=== PATIENT | female | born 1950 | race Caucasian/White ===

== ENCOUNTER 2021-09-10 06:04 | Inpatient (IN) ==
[2021-09-10] MEDS ORDERED: DOBUTamine 1,000 MG/250 ML BAG ONE (06:09)
[2021-09-10] MEDS ORDERED: NiCARdipine 2.5 MG/10 ML Syringe IVPB ONE (06:09)
[2021-09-10] MEDS ORDERED: Papaverine 60 MG/2 ML VIAL IVP ONE (06:11)
[2021-09-10] MEDS ORDERED: *HR* Heparin 5,000 UNIT/ML VIAL ONE (06:12)
[2021-09-10] MEDS ORDERED: *HR* Propofol 200 MG/20 ML VIAL IVP ONE (06:13)
[2021-09-10] MEDS ORDERED: *HR* Midazolam HCl 5 MG/5 ML VIAL IVP ONE (06:13)
[2021-09-10] MEDS ORDERED: *HR* FentaNYL (PF) 250 MCG/5 ML VIAL ONE (06:13)
[2021-09-10] MEDS ORDERED: *HR* Magnesium Sulfate 1 GM/2 ML VIAL ONE (06:14)
[2021-09-10] MEDS ORDERED: *HR* Rocuronium Bromide 50 MG/5 ML VIAL ONE (06:14)
[2021-09-10] MEDS ORDERED: Famotidine 20 MG/2 ML VIAL ONE (06:14)
[2021-09-10] MEDS ORDERED: Tranexamic Acid 1,000 MG/10 ML VIAL ONE (06:14)
[2021-09-10] MEDS ORDERED: Lidocaine 2% Syringe 100 MG/5 ML ONE (06:22)
[2021-09-10] MEDS ORDERED: ceFAZolin 1,000 MG in 0.9 % Sodium Chloride 100 ML IVPB ONE ×2 (06:28→07:30)
[2021-09-10] MEDS ORDERED: CeFAZolin Syr 2,000MG/20 ML 2,000 MG/20 ML SYRINGE IVPB ONE (06:45)
[2021-09-10] MEDS ORDERED: Chlorhexidine Rinse 15 ML MOUTHWASH MM ONE (06:59)
[2021-09-10] MEDS ORDERED: Norepinephrine 4 MG in 0.9 % Sodium Chloride 250 ML IVC PRN (07:00)
[2021-09-10] MEDS ORDERED: Buckersberg's Blood Cardioplegia PF ONE (07:00)
[2021-09-10] MEDS ORDERED: Heparin 15,000 UNIT in 0.9 % Sodium Chloride 500 ML IV ONE (07:00)
[2021-09-10] MEDS ORDERED: del Nido Cardioplegia Solution PF ONE ×2 (07:00)
[2021-09-10] MEDS ORDERED: Acetaminophen IV 1,000 MG/100 ML BAG IVPB ONE ×2 (09:40→10:19)
[2021-09-10] MEDS ORDERED: Naloxone 0.4 MG/ML INJ IVP PRN (10:09)
[2021-09-10] MEDS ORDERED: *HR* Dextrose 50 % in Water (Syg) 50 ML SYRINGE IVP PRN (10:09)
[2021-09-10] MEDS ORDERED: Ondansetron 4 MG/2 ML VIAL IVP PRN (10:09)
[2021-09-10] MEDS ORDERED: Potassium Chloride 40 MEQ/200 ML BAG IVPB PRN (10:09)
[2021-09-10] MEDS ORDERED: Insulin Regular, Human 100 UNIT/ML IV PRN (10:09)
[2021-09-10] MEDS ORDERED: Calcium Gluconate 1gm/50mL 1 GM/50 ML BAG IVPB PRN (10:09)
[2021-09-10 10:29] LABS: ABG Base Excess 0 mEq/L (-2 to 3); ABG Chloride 109 mEq/L (98-107); ABG Glucose 84 mg/dL (60-95); ABG HCO3 27 mEq/L (21-27); ABG Oxygen Saturation 100 % (95-98); ABG PCO2 53 mmHg (35-45); ABG PH 7.31 pH Units (7.32-7.45); ABG PO2 267 mmHg (85-104); ABG TCO2 28 mEq/L (20-26)
[2021-09-10] MEDS ORDERED: Pantoprazole 40 MG VIAL IVP SCH (10:30)
[2021-09-10] MEDS: Ringers Solution, Lactated 1,000 ML IVC SCH (10:45)
[2021-09-10] MEDS ORDERED: Protamine Sulfate 250 MG/25 ML VIAL IVP ONE (10:56)
[2021-09-10] MEDS ORDERED: Calcium Gluconate 1,000 MG/10 ML VIAL ONE (11:25)
[2021-09-10 11:50] LABS: ABG Base Excess -2 mEq/L (-2 to 3); ABG Chloride 108 mEq/L (98-107); ABG Glucose 117 mg/dL (60-95); ABG HCO3 25 mEq/L (21-27); ABG Ionized Calcium 1.17 mmol/L (1.15-1.35); ABG Oxygen Saturation 99 % (95-98); ABG PCO2 47 mmHg (35-45); ABG PH 7.33 pH Units (7.32-7.45); ABG PO2 138 mmHg (85-104); ABG TCO2 26 mEq/L (20-26)
[2021-09-10] MEDS ORDERED: niCARdipine 20 MG/200 ML MLS IVC ONE (12:16)
[2021-09-10 12:50] LABS: ABG Base Excess -2 mEq/L (-2 to 3); ABG HCO3 24 mEq/L (21-27); ABG Oxygen Saturation 96 % (95-98); ABG PCO2 42 mmHg (35-45); ABG PH 7.36 pH Units (7.32-7.45); ABG PO2 86 mmHg (85-104); ABG TCO2 25 mEq/L (20-26)
[2021-09-10 12:51] LABS: Basophils % 0.4 %; Eosinophils # 0.1 K/mcL (0.0-0.6); Eosinophils % 1.3 %; Hematocrit 31.5 % (35.3-44.9); Hemoglobin 9.9 g/dL (11.5-15.4); Immature Granulocytes % 0.8 % (0-4); Lymphocytes # 1.4 K/mcL (0.6-4.6); Lymphocytes % 14.2 %; Mean Corpuscular HGB Conc 31.4 g/dL (31.6-35.5); Mean Corpuscular Hemoglobin 29.7 pg (28.0-33.3); Mean Corpuscular Volume 94.6 fL (83.0-100.0); Mean Platelet Volume 9.6 fL (9.4-12.4); Monocytes % 4.5 %; Neutrophils # 7.8 K/mcL (1.6-8.9); Platelet Count 179 K/mcL (140-400); Red Blood Count 3.33 M/mcL (3.82-4.97); Red Cell Distribution Width 14.6 % (11.5-14.5); Segmented Neutrophils % 78.8 %
[2021-09-10 12:52] LABS: Monocytes # 0.5 K/mcL (0.0-1.3); White Blood Count 9.9 K/mcL (4.3-11.1)
[2021-09-10 12:59] LABS: INR 1.2; Prothrombin Time 13.8 Seconds (9.4-12.1)
[2021-09-10 13:01] LABS: Activated Partial Thrombo Time 38.6 Seconds (26.0-36.0)
[2021-09-10] MEDS: Albumin Human 5% 12.5 GM/250 ML IV.SOLN IVPB PRN ×4 (13:02→15:12)
[2021-09-10 13:08] LABS: BUN/Creatinine Ratio 22 (6-26); Blood Urea Nitrogen 23 mg/dL (8-23); Calcium 9.1 mg/dL (8.6-10.3); Carbon Dioxide 25 mEq/L (23-29); Chloride 108 mEq/L (98-107); Glucose 142 mg/dL (70-105); Osmolality,Calculated 298 (280-300); Potassium 4.2 mEq/L (3.5-5.1); Sodium 141 mEq/L (136-145); eGFR For African Americans > 60 (> 60); eGFR For Non-African Americans 52 (> 60)
[2021-09-10] MEDS: *HR* FentaNYL (PF) 100 MCG/2 ML VIAL IVP PRN ×2 (13:11→15:11)
[2021-09-10] MEDS: DOBUTamine 1,000 MG/250 ML BAG IVC SCH (13:22)
[2021-09-10] MEDS: niCARdipine 20 MG/200 ML MLS IVC SCH ×4 (13:22→20:25)
[2021-09-10] MEDS: Norepinephrine 4 MG/254 ML IV.SOLN IVC SCH ×2 (13:24→20:30)
[2021-09-10] MEDS: Gabapentin 300 MG CAPSULE PO SCH ×2 (14:31→20:20)
[2021-09-10] MEDS: *HR* OxyCODONE/APAP 5/325 TABLET PO PRN ×2 (14:33→18:29)
[2021-09-10] MEDS ORDERED: Aspirin 81 MG TAB.CHEW PO ONE (15:00)
[2021-09-10] MEDS: CeFAZolin 2 GM/120 ML BAG IVPB SCH ×2 (15:03→23:05)
[2021-09-10] MEDS: Chlorhexidine Rinse 15 ML MOUTHWASH MM SCH (20:23)
[2021-09-11] MEDS: Albumin Human 5% 12.5 GM/250 ML IV.SOLN IVPB PRN ×2 (02:00→03:10)
[2021-09-11] MEDS: niCARdipine 20 MG/200 ML MLS IVC SCH ×6 (03:25→23:07)
[2021-09-11] MEDS: Norepinephrine 4 MG/254 ML IV.SOLN IVC SCH ×2 (03:26→15:13)
[2021-09-11 03:53] LABS: Basophils % 0.1 %; Immature Granulocytes % 0.2 % (0-4); Lymphocytes # 0.5 K/mcL (0.6-4.6); Lymphocytes % 4.9 %; Mean Corpuscular HGB Conc 31.6 g/dL (31.6-35.5); Mean Corpuscular Hemoglobin 30.4 pg (28.0-33.3); Mean Corpuscular Volume 96.2 fL (83.0-100.0); Mean Platelet Volume 9.9 fL (9.4-12.4); Monocytes # 0.9 K/mcL (0.0-1.3); Monocytes % 10.1 %; Neutrophils # 7.7 K/mcL (1.6-8.9); Platelet Count 149 K/mcL (140-400); Red Cell Distribution Width 14.8 % (11.5-14.5); Segmented Neutrophils % 84.7 %; White Blood Count 9.1 K/mcL (4.3-11.1)
[2021-09-11 03:56] LABS: INR 1.2; Prothrombin Time 13.5 Seconds (9.4-12.1)
[2021-09-11 03:58] LABS: Activated Partial Thrombo Time 29.7 Seconds (26.0-36.0)
[2021-09-11 04:01] LABS: Hemoglobin 7.9 g/dL (11.5-15.4)
[2021-09-11 04:08] LABS: Calcium 8.2 mg/dL (8.6-10.3)
[2021-09-11] MEDS: *HR* OxyCODONE/APAP 5/325 TABLET PO PRN (05:45)
[2021-09-11] MEDS ORDERED: *HR* Enoxaparin 40 MG/0.4 ML SYRINGE SQ SCH (06:00)
[2021-09-11] MEDS: Ringers Solution, Lactated 1,000 ML IVC SCH (06:57)
[2021-09-11] MEDS: CeFAZolin 2 GM/120 ML BAG IVPB SCH ×2 (07:15→15:11)
[2021-09-11 07:26] LABS: ABG Base Excess -3 mEq/L (-2 to 3); ABG Chloride 109 mEq/L (98-107); ABG Glucose 128 mg/dL (60-95); ABG HCO3 23 mEq/L (21-27); ABG Ionized Calcium 1.16 mmol/L (1.15-1.35); ABG Oxygen Saturation 100 % (95-98); ABG PCO2 41 mmHg (35-45); ABG PH 7.35 pH Units (7.32-7.45); ABG PO2 353 mmHg (85-104); ABG TCO2 24 mEq/L (20-26)
[2021-09-11] MEDS: Chlorhexidine Rinse 15 ML MOUTHWASH MM SCH ×2 (07:36→19:52)
[2021-09-11] MEDS: Gabapentin 300 MG CAPSULE PO SCH ×3 (07:37→19:53)
[2021-09-11] MEDS: Aspirin Enteric Coated 81 MG Tablet PO SCH (07:37)
[2021-09-11] MEDS: allopurinoL 100 MG TABLET PO SCH ×2 (07:37→19:53)
[2021-09-11] MEDS ORDERED: Heparin 1,000 UNITS/500 mL 500 ML ONE (07:52)
[2021-09-11] MEDS: DOBUTamine 1,000 MG/250 ML BAG IVC SCH (08:11)
[2021-09-11] MEDS ORDERED: Furosemide 20 MG/2 ML VIAL IVP ONE ×2 (08:56→09:16)
[2021-09-11] MEDS ORDERED: Metoprolol XL (24 HR) Succ 25 MG TAB.ER.24H PO SCH (09:00)
[2021-09-11] MEDS: Albumin 25% 25gram/100mL 25 GM/100 ML IV.SOLN IVPB SCH ×2 (11:00→17:01)
[2021-09-11] MEDS ORDERED: Dextrose Gel 15 GM/37.5 ML TUBE PO PRN ×2 (11:43)
[2021-09-11] MEDS ORDERED: D5% in Water 1,000 ML IVC PRN (11:43)
[2021-09-11] MEDS ORDERED: *HR* Dextrose 50 % in Water (Syg) 50 ML SYRINGE IVP PRN (11:43)
[2021-09-11] MEDS: Insulin LISPRO 300 UNITS/3 ML VIAL SUBQ SCH ×2 (15:34→19:53)
[2021-09-11] MEDS: Acetaminophen 325 MG TABLET PO PRN (17:05)
[2021-09-11] MEDS ORDERED: *HR* Metoprolol 5 MG/5 ML VIAL IVP ONE ×2 (17:20→17:23)
[2021-09-11] MEDS ORDERED: Amiodarone Premix 150 MG/100 ML BAG IVPB ONE (17:40)
[2021-09-11] MEDS ORDERED: *HR* Heparin 5,000 UNIT/ML VIAL IVP PRN ×2 (17:46)
[2021-09-11] MEDS ORDERED: Amiodarone Premix 360 MG/200 ML BAG IVC ONE (18:00)
[2021-09-11] MEDS: Heparin 25,000UNIT/250ML 1/2NS 25,000 UNIT/250 ML IV.SOLN IVC SCH (18:11)
[2021-09-11] MEDS ORDERED: Furosemide 40 MG/4 ML VIAL IVP ONE (20:32)
[2021-09-12] MEDS: Albumin 25% 25gram/100mL 25 GM/100 ML IV.SOLN IVPB SCH ×5 (00:01→23:00)
[2021-09-12 00:42] LABS: Heparin anti-factor XA UFH 0.24 IU/mL (0.30-0.70)
[2021-09-12 00:46] LABS: Hematocrit 23.2 % (35.3-44.9); Hemoglobin 7.3 g/dL (11.5-15.4); INR 1.5; Mean Corpuscular HGB Conc 31.5 g/dL (31.6-35.5); Mean Corpuscular Volume 95.5 fL (83.0-100.0); Mean Platelet Volume 9.8 fL (9.4-12.4); Platelet Count 156 K/mcL (140-400); Prothrombin Time 17.1 Seconds (9.4-12.1); Red Blood Count 2.43 M/mcL (3.82-4.97); Red Cell Distribution Width 15.2 % (11.5-14.5); White Blood Count 9.3 K/mcL (4.3-11.1)
[2021-09-12] MEDS: *HR* OxyCODONE/APAP 5/325 TABLET PO PRN (02:13)
[2021-09-12 03:54] LABS: Basophils % 0.3 %; Eosinophils # 0.1 K/mcL (0.0-0.6); Eosinophils % 0.6 %; Immature Granulocytes % 0.4 % (0-4); Lymphocytes # 1.4 K/mcL (0.6-4.6); Lymphocytes % 14.2 %; Monocytes # 1.3 K/mcL (0.0-1.3); Monocytes % 13.4 %; Neutrophils # 6.9 K/mcL (1.6-8.9); Segmented Neutrophils % 71.1 %
[2021-09-12 04:03] LABS: Calcium 8.3 mg/dL (8.6-10.3); Magnesium 2.4 mg/dL (1.6-2.6); Potassium 3.8 mEq/L (3.5-5.1)
[2021-09-12] MEDS: niCARdipine 20 MG/200 ML MLS IVC SCH ×2 (05:22→05:24)
[2021-09-12] MEDS: Norepinephrine 4 MG/254 ML IV.SOLN IVC SCH ×2 (05:30→15:07)
[2021-09-12] MEDS: Acetaminophen 325 MG TABLET PO PRN ×2 (07:26→22:15)
[2021-09-12] MEDS: Insulin LISPRO 300 UNITS/3 ML VIAL SUBQ SCH ×4 (08:13→19:32)
[2021-09-12] MEDS: CeFAZolin 2 GM/120 ML BAG IVPB SCH ×2 (08:16)
[2021-09-12] MEDS: Aspirin Enteric Coated 81 MG Tablet PO SCH (08:17)
[2021-09-12] MEDS: allopurinoL 100 MG TABLET PO SCH ×2 (08:17→19:32)
[2021-09-12] MEDS: Chlorhexidine Rinse 15 ML MOUTHWASH MM SCH ×2 (08:17→19:32)
[2021-09-12] MEDS: Gabapentin 300 MG CAPSULE PO SCH ×3 (08:17→19:32)
[2021-09-12] MEDS ORDERED: 0.9 % Sodium Chloride 1,000 ML ONE (10:06)
[2021-09-12] MEDS: Amiodarone Premix 360 MG/200 ML BAG IVC SCH ×3 (13:02→22:56)
[2021-09-12] MEDS: Heparin 25,000UNIT/250ML 1/2NS 25,000 UNIT/250 ML IV.SOLN IVC SCH (15:07)
[2021-09-12] MEDS ORDERED: Warfarin perPT PO PRN (18:00)
[2021-09-12] MEDS ORDERED: *HR* Warfarin 1 MG TABLET PO ONE (19:00)
[2021-09-13 04:07] LABS: Basophils % 0.2 %; Immature Granulocytes % 0.2 % (0-4); Mean Corpuscular Volume 95.3 fL (83.0-100.0)
[2021-09-13 04:08] LABS: Eosinophils # 0.1 K/mcL (0.0-0.6); Eosinophils % 1.6 %; Hematocrit 18.4 % (35.3-44.9); Lymphocytes % 20.5 %; Mean Corpuscular Hemoglobin 29.5 pg (28.0-33.3); Mean Platelet Volume 10.2 fL (9.4-12.4); Monocytes # 0.6 K/mcL (0.0-1.3); Neutrophils # 3.4 K/mcL (1.6-8.9); Platelet Count 103 K/mcL (140-400); Red Blood Count 1.93 M/mcL (3.82-4.97); Red Cell Distribution Width 15.3 % (11.5-14.5); Segmented Neutrophils % 66.5 %; White Blood Count 5.1 K/mcL (4.3-11.1)
[2021-09-13 04:09] LABS: Lymphocytes # 1.1 K/mcL (0.6-4.6)
[2021-09-13 04:10] LABS: Hemoglobin 5.7 g/dL (11.5-15.4); Magnesium 2.2 mg/dL (1.6-2.6); Potassium 3.8 mEq/L (3.5-5.1)
[2021-09-13 04:14] LABS: Heparin anti-factor XA UFH 0.06 IU/mL (0.30-0.70)
[2021-09-13 04:15] LABS: INR 1.8
[2021-09-13] MEDS ORDERED: 0.9 % Sodium Chloride 250 ML ONE (04:27)
[2021-09-13 04:29] LABS: Activated Partial Thrombo Time 52.4 Seconds (26.0-36.0)
[2021-09-13] MEDS ORDERED: 0.9 % Sodium Chloride 1,000 ML ONE (05:30)
[2021-09-13] MEDS: Albumin 25% 25gram/100mL 25 GM/100 ML IV.SOLN IVPB SCH ×2 (05:54→12:15)
[2021-09-13] MEDS: Acetaminophen 325 MG TABLET PO PRN ×2 (05:54→20:11)
[2021-09-13] MEDS ORDERED: Calcium Gluconate 1gm/50mL 1 GM/50 ML BAG IVPB ONE (08:00)
[2021-09-13] MEDS: Aspirin Enteric Coated 81 MG Tablet PO SCH (08:56)
[2021-09-13] MEDS: Gabapentin 300 MG CAPSULE PO SCH ×3 (08:57→19:38)
[2021-09-13] MEDS: *HR* Amiodarone 200 MG TABLET PO SCH ×2 (08:57→19:38)
[2021-09-13] MEDS: Chlorhexidine Rinse 15 ML MOUTHWASH MM SCH ×2 (08:58→19:39)
[2021-09-13] MEDS: allopurinoL 100 MG TABLET PO SCH ×2 (08:58→19:38)
[2021-09-13] MEDS: Insulin LISPRO 300 UNITS/3 ML VIAL SUBQ SCH ×4 (09:11→19:38)
[2021-09-13] MEDS: Pantoprazole 40 MG VIAL IVP SCH (09:12)
[2021-09-13] MEDS ORDERED: Bumetanide 1 MG/4 ML VIAL IVP ONE (10:21)
[2021-09-13 14:24] LABS: Hematocrit 24.5 % (35.3-44.9)
[2021-09-13] MEDS: Heparin 25,000UNIT/250ML 1/2NS 25,000 UNIT/250 ML IV.SOLN IVC SCH (15:35)
[2021-09-13] MEDS: Loratadine 10 MG TABLET PO SCH (16:39)
[2021-09-13] MEDS: Norepinephrine 4 MG/254 ML IV.SOLN IVC SCH (19:07)
[2021-09-13] MEDS: Albuterol 2.5 MG/3 ML NEBULIZER IH SCH ×2 (19:51→23:40)
[2021-09-13 20:28] LABS: Hematocrit 24.5 % (35.3-44.9)
[2021-09-13] MEDS ORDERED: 0.9 % Sodium Chloride 1,000 ML IVC SCH (21:15)
[2021-09-14 01:53] LABS: Hematocrit 22.3 % (35.3-44.9); Hemoglobin 7.3 g/dL (11.5-15.4)
[2021-09-14 03:31] LABS: Basophils % 0.4 %; Eosinophils # 0.1 K/mcL (0.0-0.6); Eosinophils % 1.9 %; Hematocrit 22.2 % (35.3-44.9); Hemoglobin 7.1 g/dL (11.5-15.4); Immature Granulocytes % 0.4 % (0-4); Lymphocytes # 0.7 K/mcL (0.6-4.6); Lymphocytes % 12.8 %; Mean Corpuscular Hemoglobin 29.8 pg (28.0-33.3); Mean Corpuscular Volume 93.3 fL (83.0-100.0); Monocytes # 0.7 K/mcL (0.0-1.3); Monocytes % 12.1 %; Neutrophils # 4.1 K/mcL (1.6-8.9); Platelet Count 110 K/mcL (140-400); Red Blood Count 2.38 M/mcL (3.82-4.97); Red Cell Distribution Width 15.9 % (11.5-14.5); Segmented Neutrophils % 72.4 %; White Blood Count 5.7 K/mcL (4.3-11.1)
[2021-09-14 03:47] LABS: Prothrombin Time 33.6 Seconds (9.4-12.1)
[2021-09-14] MEDS: Albuterol 2.5 MG/3 ML NEBULIZER IH SCH ×6 (03:50→23:10)
[2021-09-14 03:52] LABS: Calcium 8.6 mg/dL (8.6-10.3); Magnesium 2.4 mg/dL (1.6-2.6); Potassium 4.4 mEq/L (3.5-5.1)
[2021-09-14] MEDS: Acetaminophen 325 MG TABLET PO PRN ×2 (05:57→14:52)
[2021-09-14] MEDS: Chlorhexidine Rinse 15 ML MOUTHWASH MM SCH ×2 (08:45→20:19)
[2021-09-14] MEDS: allopurinoL 100 MG TABLET PO SCH ×2 (08:45→20:30)
[2021-09-14] MEDS: Aspirin Enteric Coated 81 MG Tablet PO SCH (08:45)
[2021-09-14] MEDS: Pantoprazole 40 MG VIAL IVP SCH (08:46)
[2021-09-14] MEDS: Loratadine 10 MG TABLET PO SCH (08:46)
[2021-09-14] MEDS: *HR* Amiodarone 200 MG TABLET PO SCH ×2 (08:46→20:20)
[2021-09-14] MEDS: Gabapentin 300 MG CAPSULE PO SCH ×3 (08:46→20:19)
[2021-09-14] MEDS: Insulin LISPRO 300 UNITS/3 ML VIAL SUBQ SCH ×4 (08:47→20:29)
[2021-09-14 08:48] LABS: Hematocrit 23.6 % (35.3-44.9); Hemoglobin 7.6 g/dL (11.5-15.4)
[2021-09-14] MEDS ORDERED: 0.9 % Sodium Chloride 250 ML ONE (09:10)
[2021-09-14] MEDS ORDERED: *HR* Enoxaparin 40 MG/0.4 ML SYRINGE SQ ONE (10:10)
[2021-09-14] MEDS: Norepinephrine 4 MG/254 ML IV.SOLN IVC SCH (11:30)
[2021-09-14] MEDS ORDERED: Furosemide 40 MG/4 ML VIAL IVP ONE (11:38)
[2021-09-14] MEDS: Heparin 25,000UNIT/250ML 1/2NS 25,000 UNIT/250 ML IV.SOLN IVC SCH (14:32)
[2021-09-14 16:58] LABS: Hematocrit 26.1 % (35.3-44.9); Hemoglobin 8.4 g/dL (11.5-15.4)
[2021-09-15 03:28] LABS: Basophils % 0.3 %; Eosinophils # 0.1 K/mcL (0.0-0.6); Eosinophils % 2.2 %; Hematocrit 24.6 % (35.3-44.9); Hemoglobin 8.2 g/dL (11.5-15.4); Immature Granulocytes % 0.3 % (0-4); Lymphocytes # 0.6 K/mcL (0.6-4.6); Lymphocytes % 10.8 %; Mean Corpuscular HGB Conc 33.3 g/dL (31.6-35.5); Mean Corpuscular Hemoglobin 30.9 pg (28.0-33.3); Mean Corpuscular Volume 92.8 fL (83.0-100.0); Mean Platelet Volume 10.3 fL (9.4-12.4); Monocytes # 0.8 K/mcL (0.0-1.3); Monocytes % 13.7 %; Neutrophils # 4.2 K/mcL (1.6-8.9); Nucleated Red Blood Cells 0.3 /100 WBC (0); Platelet Count 134 K/mcL (140-400); Red Blood Count 2.65 M/mcL (3.82-4.97); Red Cell Distribution Width 15.8 % (11.5-14.5); Segmented Neutrophils % 72.7 %; White Blood Count 5.8 K/mcL (4.3-11.1)
[2021-09-15] MEDS: Albuterol 2.5 MG/3 ML NEBULIZER IH SCH ×6 (03:35→23:30)
[2021-09-15 03:38] LABS: INR 2.3; Prothrombin Time 25.1 Seconds (9.4-12.1)
[2021-09-15 03:43] LABS: Calcium 8.9 mg/dL (8.6-10.3); Magnesium 2.2 mg/dL (1.6-2.6); Potassium 4.3 mEq/L (3.5-5.1)
[2021-09-15] MEDS: Norepinephrine 4 MG/254 ML IV.SOLN IVC SCH (04:12)
[2021-09-15] MEDS: Acetaminophen 325 MG TABLET PO PRN ×2 (05:04→13:12)
[2021-09-15] MEDS ORDERED: *HR* Enoxaparin 40 MG/0.4 ML SYRINGE SQ SCH (06:00)
[2021-09-15] MEDS: Insulin LISPRO 300 UNITS/3 ML VIAL SUBQ SCH ×4 (07:53→21:51)
[2021-09-15] MEDS: Loratadine 10 MG TABLET PO SCH (08:01)
[2021-09-15] MEDS: Aspirin Enteric Coated 81 MG Tablet PO SCH (08:01)
[2021-09-15] MEDS: Chlorhexidine Rinse 15 ML MOUTHWASH MM SCH ×2 (08:01→20:18)
[2021-09-15] MEDS: Gabapentin 300 MG CAPSULE PO SCH ×3 (08:01→20:19)
[2021-09-15] MEDS: *HR* Amiodarone 200 MG TABLET PO SCH ×2 (08:01→20:19)
[2021-09-15] MEDS: allopurinoL 100 MG TABLET PO SCH ×2 (08:01→20:19)
[2021-09-15 09:40] LABS: Albumin/Globulin Ratio 1.7 (1.1-2.2); Bilirubin,Direct 0.4 mg/dL (0.0-0.2); Bilirubin,Indirect 0.5 mg/dL (0.0-1.0); Bilirubin,Total 0.9 mg/dL (0.3-1.0); Globulin 2.3 g/dL (2.4-3.5); Total Protein 6.3 g/dL (6.4-8.9)
[2021-09-15 10:02] LABS: Bacteria,Urine Few per hpf (None-Few); Bilirubin,Urine Negative (Negative); Blood,Urine Negative (Negative); Clarity,Urine Clear (Clear); Color,Urine Light-Yellow (Yellow); Glucose,Urine (UA) Normal (Normal); Hyaline Casts,Urine Few per lpf (None Seen); Ketones,Urine Negative (Negative); Leukocyte Esterase,Urine Small (Negative); Mucus,Urine Few per lpf (None-Few); Nitrite,Urine Negative (Negative); Protein,Urine 30 mg/dL (Neg-Trace); RBC,Urine 0-3 per hpf (0-3); Specific Gravity,Urine 1.015 (1.010-1.025); Squamous Epithelial Cell,Urine Moderate per hpf (None-Few); Transitional Epi Cells,Urine Few per hpf (None-Few); Urobilinogen,Urine Normal (Normal); WBC,Urine 0-3 per hpf (0-3)
[2021-09-15 10:04] LABS: Sodium, Urine 10.4 mEq/L
[2021-09-15 12:35] LABS: Hematocrit 26.7 % (35.3-44.9); Hemoglobin 8.6 g/dL (11.5-15.4)
[2021-09-15] MEDS: *HR* OxyCODONE/APAP 5/325 TABLET PO PRN (20:19)
[2021-09-16] MEDS: Albuterol 2.5 MG/3 ML NEBULIZER IH SCH ×6 (03:29→22:51)
[2021-09-16 03:49] LABS: Basophils % 0.5 %; Eosinophils # 0.2 K/mcL (0.0-0.6); Eosinophils % 3.7 %; Hematocrit 25.5 % (35.3-44.9); Hemoglobin 8.1 g/dL (11.5-15.4); Immature Granulocytes % 0.3 % (0-4); Lymphocytes # 0.7 K/mcL (0.6-4.6); Lymphocytes % 11.1 %; Mean Corpuscular HGB Conc 31.8 g/dL (31.6-35.5); Mean Corpuscular Hemoglobin 29.8 pg (28.0-33.3); Mean Corpuscular Volume 93.8 fL (83.0-100.0); Mean Platelet Volume 9.9 fL (9.4-12.4); Monocytes # 0.9 K/mcL (0.0-1.3); Neutrophils # 4.1 K/mcL (1.6-8.9); Platelet Count 167 K/mcL (140-400); Red Blood Count 2.72 M/mcL (3.82-4.97); Red Cell Distribution Width 15.6 % (11.5-14.5); Segmented Neutrophils % 69.4 %; White Blood Count 5.9 K/mcL (4.3-11.1)
[2021-09-16 04:02] LABS: INR 1.7; Prothrombin Time 19.2 Seconds (9.4-12.1)
[2021-09-16 04:16] LABS: Magnesium 2.2 mg/dL (1.6-2.6); Potassium 4.2 mEq/L (3.5-5.1)
[2021-09-16] MEDS ORDERED: *HR* Heparin 5,000 UNIT/ML VIAL SQ SCH (07:15)
[2021-09-16] MEDS: Insulin LISPRO 300 UNITS/3 ML VIAL SUBQ SCH ×3 (08:00→16:29)
[2021-09-16] MEDS: Aspirin Enteric Coated 81 MG Tablet PO SCH ×2 (08:09→09:08)
[2021-09-16] MEDS: Gabapentin 300 MG CAPSULE PO SCH ×4 (08:09→20:09)
[2021-09-16] MEDS: *HR* Amiodarone 200 MG TABLET PO SCH ×3 (08:09→20:09)
[2021-09-16] MEDS: allopurinoL 100 MG TABLET PO SCH ×3 (08:10→20:09)
[2021-09-16] MEDS: Loratadine 10 MG TABLET PO SCH ×2 (08:10→09:08)
[2021-09-16] MEDS: Chlorhexidine Rinse 15 ML MOUTHWASH MM SCH ×3 (08:10→20:10)
[2021-09-16] MEDS ORDERED: Naloxone 0.4 MG/ML INJ IVP PRN (08:54)
[2021-09-16] MEDS ORDERED: D5% in Water 1,000 ML IVC PRN (08:54)
[2021-09-16] MEDS ORDERED: *HR* Dextrose 50 % in Water (Syg) 50 ML SYRINGE IVP PRN (08:54)
[2021-09-16] MEDS ORDERED: Ondansetron 4 MG/2 ML VIAL IVP PRN (08:54)
[2021-09-16] MEDS ORDERED: Acetaminophen 325 MG TABLET PO PRN (08:54)
[2021-09-16] MEDS ORDERED: *HR* OxyCODONE/APAP 5/325 TABLET PO PRN (08:54)
[2021-09-16] MEDS ORDERED: Dextrose Gel 15 GM/37.5 ML TUBE PO PRN ×2 (08:54)
[2021-09-16] MEDS ORDERED: *HR* Amiodarone 200 MG TABLET PO SCH ×2 (09:00)
[2021-09-16] MEDS: *HR* Heparin 5,000 UNIT/ML VIAL SQ SCH ×3 (09:09→20:10)
[2021-09-16] MEDS ORDERED: Insulin LISPRO 300 UNITS/3 ML VIAL SUBQ SCH (21:00)
[2021-09-17] MEDS: Albuterol 2.5 MG/3 ML NEBULIZER IH SCH ×6 (03:31→22:58)
[2021-09-17 03:52] LABS: Hematocrit 26.6 % (35.3-44.9); Hemoglobin 8.4 g/dL (11.5-15.4); Mean Corpuscular HGB Conc 31.6 g/dL (31.6-35.5); Mean Corpuscular Hemoglobin 30.5 pg (28.0-33.3); Mean Corpuscular Volume 96.7 fL (83.0-100.0); Mean Platelet Volume 10.2 fL (9.4-12.4); Platelet Count 226 K/mcL (140-400); Red Blood Count 2.75 M/mcL (3.82-4.97); Red Cell Distribution Width 15.3 % (11.5-14.5); White Blood Count 6.2 K/mcL (4.3-11.1)
[2021-09-17 03:57] LABS: INR 1.5; Prothrombin Time 16.6 Seconds (9.4-12.1)
[2021-09-17 04:07] LABS: Calcium 8.7 mg/dL (8.6-10.3); Magnesium 2.1 mg/dL (1.6-2.6)
[2021-09-17] MEDS: Chlorhexidine Rinse 15 ML MOUTHWASH MM SCH ×2 (08:54→19:22)
[2021-09-17] MEDS: *HR* Heparin 5,000 UNIT/ML VIAL SQ SCH ×3 (08:54→18:52)
[2021-09-17] MEDS: Loratadine 10 MG TABLET PO SCH (08:55)
[2021-09-17] MEDS: Insulin LISPRO 300 UNITS/3 ML VIAL SUBQ SCH ×2 (08:55→11:55)
[2021-09-17] MEDS: allopurinoL 100 MG TABLET PO SCH ×2 (08:55→19:23)
[2021-09-17] MEDS: Aspirin Enteric Coated 81 MG Tablet PO SCH (08:55)
[2021-09-17] MEDS: *HR* Amiodarone 200 MG TABLET PO SCH ×2 (08:55→19:22)
[2021-09-17] MEDS: Gabapentin 300 MG CAPSULE PO SCH ×3 (08:55→19:23)
[2021-09-17] MEDS ORDERED: polyethylene glycoL 3350 17 GM POWD.PACK PO ONE (10:07)
[2021-09-17] MEDS: Sennosides/Docusate Sodium TABLET PO SCH ×2 (10:34→19:23)
[2021-09-18 02:03] LABS: Hematocrit 25.8 % (35.3-44.9); Hemoglobin 7.9 g/dL (11.5-15.4); Mean Corpuscular HGB Conc 30.6 g/dL (31.6-35.5); Mean Corpuscular Hemoglobin 29.5 pg (28.0-33.3); Mean Corpuscular Volume 96.3 fL (83.0-100.0); Mean Platelet Volume 9.8 fL (9.4-12.4); Platelet Count 226 K/mcL (140-400); Red Blood Count 2.68 M/mcL (3.82-4.97); Red Cell Distribution Width 15.5 % (11.5-14.5); White Blood Count 6.3 K/mcL (4.3-11.1)
[2021-09-18 02:17] LABS: Calcium 8.7 mg/dL (8.6-10.3); Magnesium 2.1 mg/dL (1.6-2.6); Potassium 4.4 mEq/L (3.5-5.1)
[2021-09-18] MEDS: Albuterol 2.5 MG/3 ML NEBULIZER IH SCH ×6 (03:56→22:55)
[2021-09-18] MEDS: *HR* Amiodarone 200 MG TABLET PO SCH ×2 (08:00→20:00)
[2021-09-18] MEDS: Loratadine 10 MG TABLET PO SCH (08:00)
[2021-09-18] MEDS: allopurinoL 100 MG TABLET PO SCH ×2 (08:00→19:59)
[2021-09-18] MEDS: Gabapentin 300 MG CAPSULE PO SCH ×3 (08:00→20:14)
[2021-09-18] MEDS: Aspirin Enteric Coated 81 MG Tablet PO SCH (08:00)
[2021-09-18] MEDS: Sennosides/Docusate Sodium TABLET PO SCH ×2 (08:00→20:00)
[2021-09-18] MEDS: Chlorhexidine Rinse 15 ML MOUTHWASH MM SCH ×2 (08:01→20:01)
[2021-09-18] MEDS: *HR* Heparin 5,000 UNIT/ML VIAL SQ SCH ×3 (08:02→20:01)
[2021-09-19] MEDS: Albuterol 2.5 MG/3 ML NEBULIZER IH SCH ×4 (04:11→15:56)
[2021-09-19 06:22] LABS: Hematocrit 26.2 % (35.3-44.9); Hemoglobin 8.1 g/dL (11.5-15.4); Mean Corpuscular HGB Conc 30.9 g/dL (31.6-35.5); Mean Corpuscular Hemoglobin 29.7 pg (28.0-33.3); Platelet Count 265 K/mcL (140-400); Red Blood Count 2.73 M/mcL (3.82-4.97); Red Cell Distribution Width 15.7 % (11.5-14.5); White Blood Count 5.4 K/mcL (4.3-11.1)
[2021-09-19 06:45] LABS: BUN/Creatinine Ratio 43 (6-26); Blood Urea Nitrogen 46 mg/dL (8-23); Calcium 8.7 mg/dL (8.6-10.3); Carbon Dioxide 23 mEq/L (23-29); Chloride 107 mEq/L (98-107); Glucose 102 mg/dL (70-105); Osmolality,Calculated 298 (280-300); Potassium 4.3 mEq/L (3.5-5.1); Sodium 138 mEq/L (136-145); eGFR For African Americans > 60 (> 60); eGFR For Non-African Americans 50 (> 60)
[2021-09-19] MEDS ORDERED: Albuterol 2.5 MG/3 ML NEBULIZER ONE (07:16)
[2021-09-19] MEDS: Sennosides/Docusate Sodium TABLET PO SCH (08:50)
[2021-09-19] MEDS: allopurinoL 100 MG TABLET PO SCH (08:50)
[2021-09-19] MEDS: *HR* Amiodarone 200 MG TABLET PO SCH (08:50)
[2021-09-19] MEDS: Aspirin Enteric Coated 81 MG Tablet PO SCH (08:51)
[2021-09-19] MEDS: Gabapentin 300 MG CAPSULE PO SCH ×2 (08:53→15:07)
[2021-09-19] MEDS: Loratadine 10 MG TABLET PO SCH (08:53)
[2021-09-19] MEDS: *HR* Heparin 5,000 UNIT/ML VIAL SQ SCH ×2 (08:54→15:06)
[2021-09-19] MEDS: Chlorhexidine Rinse 15 ML MOUTHWASH MM SCH (08:54)
[2021-09-19 15:42] VITALS: BP 115/63; PULSE 59; TEMP 98.8
[2021-09-19 16:43] VITALS: O2SAT 96
[2021-09-19 17:17] LABS: Adenovirus Not Detected (Not Detect); Bordetella Pertussis Not Detected (Not Detect); Chlamydophila pneumoniae Not Detected (Not Detect); Coronavirus 229E Not Detected (Not Detect); Coronavirus HKU1 Not Detected (Not Detect); Coronavirus NL63 Not Detected (Not Detect); Coronavirus OC43 Not Detected (Not Detect); Human Metapneumovirus Not Detected (Not Detect); Human Rhinovirus/Enterovirus Not Detected (Not Detect); Influenza A Subtype 2009 H1 Not Detected (Not Detect); Influenza B Not Detected (Not Detect); Mycoplasma pneumoniae Not Detected (Not Detect); Parainfluenza Virus 1 Not Detected (Not Detect); Parainfluenza Virus 2 Not Detected (Not Detect); Parainfluenza Virus 3 Not Detected (Not Detect); Parainfluenza Virus 4 Not Detected (Not Detect); Respiratory Syncytial Virus Not Detected (Not Detect); SARS-CoV-2 Not Detected (Not Detect)
== END 2021-09-19 19:01 | disposition other institution (70) | DRG 235 ==
LOC: SAMDAY 06:04 → ICNU 09:13 → 2NNU 09-16 11:54
PROVIDERS: ADMIT Thoracic Surgery (Cardiothoracic Vascular Surgery); ATTEND Thoracic Surgery (Cardiothoracic Vascular Surgery)